=== PATIENT | female | born 1975 | race Hispanic/Latino ===

== ENCOUNTER 2019-01-29 08:14 | Emergency (ER) | payer OTHER ==
--- NOTE | 2019-01-29 09:40 | RAD ---
THREE VIEWS RIGHT ANKLE: COMPARISON: None. HISTORY: Right ankle pain after twisting it earlier this morning. FINDINGS: Three views of the right ankle show a small avulsion fracture off the lateral aspect of the talus. N o tibial fracture or fibula fracture is seen. Moderate lateral soft tissue swelling is seen. IMPRESSION: Small avulsion fracture off the lateral talus. POS: [facility]
== END 2019-01-29 10:25 | disposition home or self-care (01) ==
LOC: MADERS 08:14
DX: S92.141A Displaced dome fracture of right talus, initial encounter for closed fracture (principal); W18.30XA Fall on same level, unspecified, initial encounter
CPT/HCPCS: 29515